=== PATIENT | male | born 1990 | race Caucasian/White ===

== ENCOUNTER 2017-06-21 19:56 | Emergency (ER) | payer OTHER ==
[2017-06-21 20:11] VITALS: BP 123/74; PULSE 86; TEMP 98.3; BMI 23.6
--- NOTE | 2017-06-21 20:11 | PDOC ---
Rapid Medical Evaluation Chief Complaint: Back Pain Time Seen by Provider: 06/21/17 20:08 Medical Evaluation: 06/21/17 20:08 I have performed a brief in-person evaluation of this patient. The patient presents with a chief complaint of: Back pain, Rectal pain, groin pain, burning on urination. Pertinent physical exam findings: n/a I have ordered the following: UA, Urine C&S The patient will proceed to the ED for further evaluation.
[2017-06-21] MEDS ORDERED: SULFAMETHOXAZOLE/TRIMETHOPRIM 800MG/160MG D.S. TABLET PO ONE (23:50)
[2017-06-21] MEDS ORDERED: IBUPROFEN 400 MG TABLET (FP) PO ONE (23:50)
--- NOTE | 2017-06-21 23:52 | PDOC ---
History of Present Illness - General History Source: Patient <Aly Garcia - Last Filed: 06/22/17 00:02> - History of Present Illness Initial Comments: 06/22/17 00:05 The patient is a 26 year old male, with no significant past medical history, who presents to the emergency department with several days of pain to his lower gluteal cleft resulting in pressure, pain, and discomfort when he sits or lies down. He denies chest pain, shortness of breath, headache and dizziness. He denies fever, chills, nausea, vomit, diarrhea and constipation. He denies dysuria, frequency, urgency and hematuria. Allergies: NKDA <Rosana Ramires - Last Filed: 06/22/17 00:07> - General Chief Complaint: Urinary Problem Stated Complaint: BACK PAIN Time Seen by Provider: 06/21/17 23:49 Past History - Past Medical History COPD: No - Suicide/Smoking/Psychosocial Hx Smoking History: Never smoked Have you smoked in the past 12 months: No Information on smoking cessation initiated: No Hx Alcohol Use: No Drug/Substance Use Hx: No Substance Use Type: None <Aly Garcia - Last Filed: 06/22/17 00:02> <Rosana Ramires - Last Filed: 06/22/17 00:07> - Past Medical History Home Medications: Ambulatory Orders Ibuprofen 800 mg PO TID #30 tablet 06/21/17 Sulfamethoxazole/Trimethoprim [Bactrim *Ds*] 1 tab PO BID #20 tablet 06/21/17 Review of Systems - Review of Systems Able to Perform ROS?: Yes Comments:: 06/22/17 00:05 CONSTITUTIONAL: Absent: fever, chills, diaphoresis, generalized weakness, malaise, loss of appetite HEENT: Absent: rhinorrhea, nasal congestion, throat pain, throat swelling, difficulty swallowing, mouth swelling, ear pain, eye pain, visual Changes CARDIOVASCULAR: Absent: chest pain, syncope, palpitations, irregular heart rate, lightheadedness , peripheral edema RESPIRATORY: Absent: cough, shortness of breath, dyspnea with exertion, orthopnea, wheezing, stridor, hemoptysis GASTROINTESTINAL: Absent: abdominal pain, abdominal distension, nausea, vomiting, diarrhea, constipation, melena, hematochezia GENITOURINARY: Absent: dysuria, frequency, urgency, hesitancy, hematuria, flank pain, genital pain MUSCULOSKELETAL: (+) pain to gluteal cleft. Absent: myalgia, arthralgia, joint swelling SKIN: Absent: rash, itching, pallor HEMATOLOGIC/IMMUNOLOGIC: Absent: easy bleeding, easy bruising, lymphadenopathy, frequent infections ENDOCRINE: Absent: unexplained weight gain, unexplained weight loss, heat intolerance, cold intolerance NEUROLOGIC: Absent: headache, focal weakness or paresthesias, dizziness, unsteady gait, seizure, mental status changes, bladder or bowel incontinence PSYCHIATRIC: Absent: anxiety, depression, suicidal or homicidal ideation, hallucinations. <Rosana Ramires - Last Filed: 06/22/17 00:07> *Physical Exam - Vital Signs Last Vital Signs Temp Pulse Resp BP Pulse Ox 98.3 F 86 18 123/74 97 06/21/17 20:01 06/21/17 20:01 06/21/17 20:01 06/21/17 20:01 06/21/17 20:01 <Aly Garcia - Last Filed: 06/22/17 00:02> - Vital Signs Last Vital Signs Temp Pulse Resp BP Pulse Ox 98.3 F 86 18 123/74 97 06/21/17 20:01 06/21/17 20:01 06/21/17 20:01 06/21/17 20:01 06/21/17 20:01 - Physical Exam Comments: 06/22/17 00:06 GENERAL: Well developed, well nourished. Awake and alert. No acute distress. HEENT: Normocephalic, atraumatic. PERRLA, EOMI. No conjunctival pallor. Sclera are non- icteric. Moist mucous membranes. Oropharynx is clear. NECK: Supple. Full ROM. No JVD. Carotid pulses 2+ and symmetric, without bruits. No thyromegaly. No lymphadenopathy. CARDIOVASCULAR: Regular rate and rhythm. No murmurs, rubs, or gallops. Distal pulses are 2+ and symmetric. PULMONARY: No evidence of respiratory distress. Lungs clear to auscultation bilaterally. No wheezing, rales or rhonchi. ABDOMINAL: Soft. Non-tender. Non-distended. No rebound or guarding. No organomegaly. Normoactive bowel sounds. MUSCULOSKELETAL Normal range of motion at all joints. No bony deformities or tenderness. No CVA tenderness. EXTREMITIES: No cyanosis. No clubbing. No edema. No calf tenderness. SKIN: (+) Slight erythema, skin breakdown, and tenderness at the gluteal cleft. Warm and dry. Normal capillary refill. No jaundice. NEUROLOGICAL: Alert, awake, appropriate. Cranial nerves 2-12 intact. Normoreflexic in the upper and lower extremities. Normal speech. Toes are down-going bilaterally. Gait is normal without ataxia. PSYCHIATRIC: Cooperative. Good eye contact. Appropriate mood and affect. <Rosana Ramires - Last Filed: 06/22/17 00:07> Medical Decision Making - Medical Decision Making 06/22/17 00:03 Dr. Garcia: The scribe's documentation has been prepared under my direction and personally reviewed by me in its entirery. I confirm that the note above accurately reflects all work, treatment, procedures, and medical decision making performed by me. <Aly Garcia - Last Filed: 06/22/17 00:02> *DC/Admit/Observation/Transfer - Discharge Dispostion Admit: No <Aly Garcia - Last Filed: 06/22/17 00:02> - Attestations Scribe Attestion: 06/22/17 00:07 Documentation prepared by Rosana Ramires, acting as medical doctor nuclear medicine for Aly Garcia DO <Rosana Ramires - Last Filed: 06/22/17 00:07> Diagnosis at time of Disposition: Pilonidal cyst - Discharge Dispostion Disposition: HOME Condition at time of disposition: Stable - Prescriptions Prescriptions: Ibuprofen 800 mg PO TID #30 tablet Sulfamethoxazole/Trimethoprim [Bactrim *Ds*] 1 tab PO BID #20 tablet - Referrals Referrals: Philip Stevens MD [Staff Physician] - - Patient Instructions Printed Discharge Instructions: Pilonidal Cyst - Post Discharge Activity Forms/Work/School Notes: Back to Work
[2017-06-22 00:11] LABS: URINE APPEARANCE CLEAR; URINE BILIRUBIN NEGATIVE (NEGATIVE); URINE BLOOD NEGATIVE (NEGATIVE); URINE COLOR DK. ORANGE; URINE GLUCOSE (UA) NEGATIVE (NEGATIVE); URINE KETONE NEGATIVE (NEGATIVE); URINE NITRITE NEGATIVE (NEGATIVE); URINE PROTEIN NEGATIVE (NEGATIVE); URINE UROBILINOGEN 0.2 mg/dL (0.2-1.0)
[2017-06-22] MEDS ORDERED: SULFAMETHOXAZOLE/TRIMETHOPRIM 800MG/160MG D.S. TABLET ONE ×2 (00:13→00:17)
[2017-06-22] MEDS ORDERED: IBUPROFEN 400 MG TABLET (FP) PO ONE ×2 (00:13→00:17)
[2017-06-22 09:03] LABS: URINE LEUK ESTERASE Negative (NEGATIVE)
== END 2017-06-22 00:20 | disposition home or self-care (01) ==
LOC: JER 19:56
DX: L05.91 Pilonidal cyst without abscess (principal)
CPT/HCPCS: 81003; 87086; 99282-25